=== PATIENT | female | born 1950 | race Caucasian/White ===

== ENCOUNTER → 2020-08-28 | Outpatient (CLI) | payer MEDICARE, BC ==
[~2020-08-28] MED LIST: EMPA25TA PO; METF500T17 PO; RAMI10CA59 PO; ROSU10TA2 PO
[2020-08-28 10:59] LABS: INTERNATIONAL NORMALIZED RATIO 1.09 (0.93-1.1); PROTHROMBIN TIME 11.5 Seconds (9.6-11.5)
[2020-08-28 11:02] LABS: ALANINE AMINOTRANSFERASE 26 U/L (12-78); ANION GAP 4 mmol/L (5-15); CALCIUM 9.7 mg/dL (8.5-10.1); CHLORIDE 108 mmol/L (98-107); CREATININE 1.28 mg/dL (0.55-1.02)
[2020-08-28 11:04] LABS: ALKALINE PHOSPHATASE 107 U/L (45-117); BILIRUBIN,TOTAL 0.6 mg/dL (0.2-1.0); TOTAL PROTEIN 8.1 g/dL (6.4-8.2)
[2020-08-28 11:06] LABS: BASOPHILS % (AUTO) 0 % (0-1); EOSINOPHILS % (AUTO) 2 % (1-7); LYMPHOCYTES % (AUTO) 24 % (22-44); MEAN CORPUSCULAR HEMOGLOBIN 29.6 pg (27.0-34.8); MEAN CORPUSCULAR HGB CONC 33.5 g/dL (32.4-35.8); MEAN PLATELET VOLUME 8.1 fL (7.4-10.4); MONOCYTES % (AUTO) 6 % (2-9); NEUTROPHILS % (AUTO) 68 % (42-75); PLATELET COUNT 236 x10^3/uL (130-400); RED BLOOD COUNT 5.24 x10^6/uL (3.82-5.3); RED CELL DISTRIBUTION WIDTH 13.8 % (9.6-15.2)
[2020-08-28 11:20] LABS: MD NO
== END | disposition home or self-care (01) ==
LOC: STAR 09:14
PROVIDERS: ATTEND Orthopaedic Surgery
DX: Z01.812 Encounter for preprocedural laboratory examination (principal); Z20.828 Contact with and (suspected) exposure to other viral communicable diseases; M16.11 Unilateral primary osteoarthritis, right hip; M25.551 Pain in right hip
CPT/HCPCS: 80053; 83036; 85025; 85610; 85730; 87081; 87147; 87635; 93005

== ENCOUNTER 2020-09-02 08:12 | Day surgery (SDC) | payer MEDICARE, BC ==
[~2020-09-02] VITALS: Ht 188 cm; Wt 97.0 kg
[~2020-09-02 08:12] MED LIST changes: +ACETAMINOPHEN 650 MG/20.3 ML UDC PO PRN; +BISACODYL 10 MG SUPP PR PRN; +CEFAZOLIN PMX 2GM/50ML 50 ML IVPB SCH; +DIPHENHYDRAMINE 50 MG CAPSULE PO PRN; +HYDROcodone/APAP 5/325 TABLET PO PRN; +INSULIN LISPRO 100 UNITS/ML, PEN SQ-INSULIN SCH; +MAGNESIUM HYDROXIDE 8%, 30ML UDC PO PRN; +NS + 20MEQ KCL 1,000 ML IV SCH; +ONDANSETRON 2MG/ML, 2ML IV PRN; +ONDANSETRON 4 MG TABLET PO PRN; +OXYcodone IR 5MG TABLET PO PRN; +SENNA/DOCUSATE TABLET PO PRN; +ZOLPIDEM 5MG TABLET PO PRN
[2020-09-02] MEDS ORDERED: TEMPLATE NON-FORMULARY MED. (Ramipril** 10 MG) PO SCH (09:00)
[2020-09-02] MEDS ORDERED: DOCUSATE 100 MG CAPSULE PO SCH (09:00)
[2020-09-02] MEDS ORDERED: metFORMIN 500 MG TABLET PO SCH (09:00)
[2020-09-02] MEDS ORDERED: CHLORHEXIDINE 15 ML UDC ONE (09:09)
[2020-09-02] MEDS ORDERED: CHLORHEXIDINE 15 ML UDC MM ONE (09:30)
[2020-09-02] MEDS ORDERED: LACTATED RINGERS 1,000 ML IV SCH (09:30)
[2020-09-02] MEDS ORDERED: GABAPENTIN 300 MG CAPSULE ONE (09:43)
[2020-09-02] MEDS ORDERED: ACETAMINOPHEN 500 MG TABLET ONE (09:43)
[2020-09-02] MEDS ORDERED: hydrALAzine 20 MG/ML, 1ML IV PRN (10:00)
[2020-09-02] MEDS ORDERED: HYDROmorphone 1 MG/ML, 1ML INJ IVPush PRN (10:00)
[2020-09-02] MEDS ORDERED: HALOPERIDOL 5 MG/ML IV PRN (10:00)
[2020-09-02] MEDS ORDERED: PROMETHAZINE 25 MG/ML, 1ML IVPush PRN (10:00)
[2020-09-02] MEDS ORDERED: DIPHENHYDRAMINE 50 MG/ML, 1ML IVPush PRN (10:00)
[2020-09-02] MEDS ORDERED: LABETALOL 5MG/ML, 20ML IV PRN (10:00)
[2020-09-02] MEDS ORDERED: ACETAMINOPHEN 500 MG TABLET PO ONE (10:00)
[2020-09-02] MEDS ORDERED: GABAPENTIN 300 MG CAPSULE PO ONE (10:00)
[2020-09-02] MEDS ORDERED: MEPERIDINE/PF 25MG/0.5ML IVPush PRN (10:00)
[2020-09-02] MEDS ORDERED: OXYcodone 5 MG/5 ML ORAL.SOL UDC PO PRN (10:00)
[2020-09-02] MEDS ORDERED: ROCURONIUM 10 MG/ML,10ML ONE (10:43)
[2020-09-02] MEDS ORDERED: CEFAZOLIN 1,000 MG ONE (10:43)
[2020-09-02] MEDS ORDERED: EPINEPHRINE 1 MG/ML, 1ML ONE (10:43)
[2020-09-02] MEDS ORDERED: ROPIvacaine/PF 0.5%, 20 ML ONE (10:43)
[2020-09-02] MEDS ORDERED: VANCOMYCIN 1,000 MG ONE (10:43)
[2020-09-02] MEDS ORDERED: MIDAZOLAM 1 MG/ML, 2ML ONE (10:43)
[2020-09-02] MEDS ORDERED: TRANEXAMIC ACID 100 MG/ML, 10ML ONE (10:43)
[2020-09-02] MEDS ORDERED: EPHEDRINE 50 MG/ML, 1ML ONE (10:43)
[2020-09-02] MEDS ORDERED: GLYCOPYRROLATE 0.2MG/1ML, 5ML ONE (10:43)
[2020-09-02] MEDS ORDERED: ONDANSETRON 2MG/ML, 2ML ONE (10:43)
[2020-09-02] MEDS ORDERED: ROPIvacaine/PF 0.5%, 30 ML ONE (10:43)
[2020-09-02] MEDS ORDERED: LIDOCAINE GEL 2%, 5ML ONE (10:43)
[2020-09-02] MEDS ORDERED: FENTANYL PF 250 MCG/5ML ONE (10:43)
[2020-09-02] MEDS ORDERED: DEXAMETHASONE 4 MG/ML, 1ML ONE (10:43)
[2020-09-02] MEDS ORDERED: SUCCINYLCHOLINE 20 MG/ML, 10ML ONE (10:43)
[2020-09-02] MEDS ORDERED: KETOROLAC 60 MG/2 ML ONE (10:43)
[2020-09-02] MEDS ORDERED: PROPOFOL 10 MG/ML, 20ML ONE (10:43)
[2020-09-02] MEDS ORDERED: NEOSTIGMINE 1 MG/ML, 10ML ONE (10:43)
[2020-09-02] MEDS ORDERED: FENTANYL PF 100 MCG/2ML ONE (12:24)
[2020-09-02] MEDS ORDERED: OXYcodone 5 MG/5 ML ORAL.SOL UDC ONE (12:24)
[2020-09-02] MEDS: FENTANYL PF 100 MCG/2ML IVPush PRN ×3 (12:45→13:06)
[2020-09-02] MEDS ORDERED: ASPIRIN 81 MG TABLET EC PO SCH (18:00)
[2020-09-02] MEDS ORDERED: TEMPLATE NON-FORMULARY MED. (Rosuvastatin Calcium** (Crestor**) 10 MG) PO SCH (21:00)
== END 2020-09-02 16:50 | disposition home or self-care (01) ==
LOC: OUT 08:12 → EDSEX 08:12 → OUT 16:50
PROVIDERS: ATTEND Orthopaedic Surgery
DX: M16.0 Bilateral primary osteoarthritis of hip (principal); M25.751 Osteophyte, right hip; I10 Essential (primary) hypertension; E78.5 Hyperlipidemia, unspecified; E11.9 Type 2 diabetes mellitus without complications; G47.30 Sleep apnea, unspecified; Z79.84 Long term (current) use of oral hypoglycemic drugs; Z79.899 Other long term (current) drug therapy; Z88.8 Allergy status to other drugs, medicaments and biological substances; Z82.61 Family history of arthritis; Z82.3 Family history of stroke
CPT/HCPCS: 27130; 72170; 73501; 82962; 97161; 97165; C1713; C1776; J0171; J0330; J0690; J1100; J1885; J2250; J2405; J2704; J2710; J2795; J3010; J3370; J7120; 76000

== ENCOUNTER 2020-12-28 08:12 | Outpatient (CLI) | payer MEDICARE, BC ==
[~2020-12-28 08:12] MED LIST changes: -ACETAMINOPHEN 650 MG/20.3 ML UDC PO PRN; -BISACODYL 10 MG SUPP PR PRN; -CEFAZOLIN PMX 2GM/50ML 50 ML IVPB SCH; -DIPHENHYDRAMINE 50 MG CAPSULE PO PRN; -HYDROcodone/APAP 5/325 TABLET PO PRN; -INSULIN LISPRO 100 UNITS/ML, PEN SQ-INSULIN SCH; -MAGNESIUM HYDROXIDE 8%, 30ML UDC PO PRN; -NS + 20MEQ KCL 1,000 ML IV SCH; -ONDANSETRON 2MG/ML, 2ML IV PRN; -ONDANSETRON 4 MG TABLET PO PRN; -OXYcodone IR 5MG TABLET PO PRN; -SENNA/DOCUSATE TABLET PO PRN; -ZOLPIDEM 5MG TABLET PO PRN
[2020-12-28] MEDS ORDERED: ASPI81TA45 PO (08:54)
[2020-12-28 10:28] LABS: BASOPHILS % (AUTO) 1 % (0-1); EOSINOPHILS % (AUTO) 2 % (1-7); LYMPHOCYTES % (AUTO) 28 % (22-44); MEAN CORPUSCULAR HEMOGLOBIN 29.3 pg (27.5-34.5); MEAN CORPUSCULAR HGB CONC 33.4 g/dL (33.2-36.2); MEAN PLATELET VOLUME 8.3 fL (7.4-10.4); MONOCYTES % (AUTO) 8 % (2-9); NEUTROPHILS % (AUTO) 61 % (42-75); PLATELET COUNT 229 x10^3/uL (130-400); RED BLOOD COUNT 5.32 x10^6/uL (4.38-5.82); RED CELL DISTRIBUTION WIDTH 14.7 % (9.4-14.8)
[2020-12-28 10:33] LABS: ALANINE AMINOTRANSFERASE 42 U/L (12-78); ANION GAP 5 mmol/L (5-15); CALCIUM 9.8 mg/dL (8.5-10.1); CHLORIDE 100 mmol/L (98-107); CREATININE 1.37 mg/dL (0.7-1.3)
[2020-12-28 10:35] LABS: ALKALINE PHOSPHATASE 116 U/L (45-117); BILIRUBIN,TOTAL 0.5 mg/dL (0.2-1.0); INTERNATIONAL NORMALIZED RATIO 1.01 (0.93-1.1); PROTHROMBIN TIME 10.8 Seconds (9.6-11.5); TOTAL PROTEIN 8.3 g/dL (6.4-8.2)
[2020-12-28 12:10] LABS: ESTIMATED AVERAGE GLUCOSE 355 mg/dL (0-126)
== END 2020-12-28 23:59 | disposition home or self-care (01) ==
LOC: STAR 08:12
PROVIDERS: ATTEND Orthopaedic Surgery
DX: Z01.812 Encounter for preprocedural laboratory examination (principal); Z20.822 Contact with and (suspected) exposure to COVID-19; M16.12 Unilateral primary osteoarthritis, left hip; Z79.01 Long term (current) use of anticoagulants
CPT/HCPCS: 36415; 80053; 83036; 85025; 85610; 85730; 87081; 87147; 93005; U0003